=== PATIENT | female | born 1935 | race Caucasian/White ===

== ENCOUNTER 2017-11-14 18:12 | Emergency (ER) | payer OTHER, MEDICAID ==
[~2017-11-14] VITALS: Ht 162.6 cm; Wt 74.0 kg
[2017-11-14] MEDS ORDERED: SODIUM CHLORIDE 0.9% 1,000 ML IV ONE (18:35)
[2017-11-14] MEDS ORDERED: SODIUM CHLORIDE FLUSH 10ML SYR IVF ONE (19:00)
[2017-11-14 19:08] LABS: HEMATOCRIT 42.8 % (34.6-47.8); HEMOGLOBIN 14.4 g/dL (11.7-16.4); WHITE BLOOD COUNT 6.8 x10^3/uL (3.4-10)
[2017-11-14] MEDS ORDERED: OMEP-110 PO (19:14)
[2017-11-14] MEDS ORDERED: ESLI200T PO ×2 (19:14)
[2017-11-14] MEDS ORDERED: MULT-516 PO (19:14)
[2017-11-14] MEDS ORDERED: CHOL100015 PO (19:14)
[2017-11-14] MEDS ORDERED: APIX5TAB PO (19:14)
[2017-11-14 19:20] LABS: BLOOD UREA NITROGEN 14 mg/dL (7-18)
[2017-11-14 20:37] LABS: PATH.CAST-FLAG NOT PRESENT; SPERM-FLAG NOT PRESENT; SRC-FLAG NOT PRESENT; XTAL-FLAG NOT PRESENT; YLC-FLAG NOT PRESENT
[2017-11-14] MEDS ORDERED: NITROFURANTOIN (MACROBID) 100 MG CAPSULE ONE (21:47)
[2017-11-14] MEDS ORDERED: NITROFURANTOIN (MACROBID) 100 MG CAPSULE PO ONE (22:00)
[2017-11-14 22:10] VITALS: BP 159/70
== END 2017-11-14 22:11 | disposition home or self-care (01) ==
LOC: ED 19:59
DX: R56.9 Unspecified convulsions (principal); N30.00 Acute cystitis without hematuria; K21.9 Gastro-esophageal reflux disease without esophagitis; G40.909 Epilepsy, unspecified, not intractable, without status epilepticus; F03.90 Unspecified dementia, unspecified severity, without behavioral disturbance, psychotic disturbance, mood disturbance, and anxiety; Z95.2 Presence of prosthetic heart valve
CPT/HCPCS: 36415; 70450; 80048; 81001; 82040; 85025; 87086; 93005; 96360; 96361; 99285; J7030; 87077